=== PATIENT | male | born 1950 | race African-American/Black ===

== ENCOUNTER 2023-10-09 14:21 | Emergency (ER) | payer MEDICAID ==
[~2023-10-09] VITALS: Ht 190.5 cm; Wt 100.0 kg
[2023-10-09 14:29] VITALS: O2SAT 100
[2023-10-09 15:00] LABS: BASOPHILS % 0.8 % (0.0-2.0); HEMATOCRIT. 30.5 % (42.0-52.0); LYMPHOCYTES % 15.1 % (20.0-50.0); MEAN CORPUSCULAR HEMOGLOBIN 29.3 pg (28.0-32.0); MEAN CORPUSCULAR HGB CONC 32.9 g/dL (31.0-37.0); MEAN CORPUSCULAR VOLUME 89.3 fL (80.0-94.0); MEAN PLATELET VOLUME 6.7 fl (7.4-10.4); MONOCYTES % 8.7 % (2.0-8.0); NEUTROPHILS % 74.4 % (40.0-76.0); PLATELET 706 x1000/uL (130-400); RED BLOOD CELL COUNT 3.42 mill/uL (4.7-6.1); RED CELL DISTRIBUTION WIDTH 13.6 % (11.6-14.6); WHITE BLOOD COUNT 9.1 x1000/uL (4.5-11.0)
[2023-10-09 15:37] LABS: ALANINE AMINOTRANSFERASE 22 IU/L (10-49); ALBUMIN 3.6 g/dL (3.2-4.8); ASPARTATE AMINOTRANSFERASE 27 IU/L (<34); BILIRUBIN TOTAL 0.5 mg/dL (0.1-1.0); CALCIUM 9.3 mg/dL (8.7-10.4); CARBON DIOXIDE 27 mEq/L (21-32); CHLORIDE 101 mEq/L (98-107); CREATININE 1.4 mg/dL (0.6-1.3); GLUCOSE 64 mg/dL (70-105); POTASSIUM 3.8 mEq/L (3.5-5.1); PROTEIN TOTAL 6.7 g/dL (6.0-8.3); SODIUM 137 mEq/L (136-145); UREA NITROGEN BLOOD 14 mg/dL (9-23)
[2023-10-09] MEDS ORDERED: GUAIFENESIN/CODEINE 200-20MG/10ML UDC PO ONE (16:45)
[2023-10-09] MEDS ORDERED: IBUPROFEN 600MG TABLET PO ONE (16:45)
[2023-10-09] MEDS ORDERED: BENZ200C52 MT (17:14)
[2023-10-09 17:41] LABS: TROPONIN I HIGH SENSITIVITY < 4 ng/L (3.0-53)
[2023-10-09 19:27] VITALS: BP 121/78; PULSE 87; RESP 18; TEMP 98.3
== END 2023-10-09 19:28 | disposition home or self-care (01) ==
LOC: ER 15:07
DX: R07.89 Other chest pain (principal); R05.9 Cough, unspecified; E78.00 Pure hypercholesterolemia, unspecified; I10 Essential (primary) hypertension
CPT/HCPCS: 80053; 83880; 85025; 84484; 36415; 71045; 93005; 99291; Z7610